=== PATIENT | female | born 2000 | race Caucasian/White ===

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

== ENCOUNTER 2021-12-18 16:16 | Emergency (ER) | payer OTHER ==
[2021-12-18 17:28] VITALS: TEMP 98.4
[2021-12-18] MEDS ORDERED: IBUPROFEN 200 MG TAB PO STA (20:30)
--- NOTE | 2021-12-18 21:04 | ED ---
ENT HPI - General Chief complaint: ENT Stated complaint: Throat pain,SOB Time Seen by Provider: 12/18/21 20:17 Source: patient Mode of arrival: ambulatory Limitations: no limitations - History of Present Illness Initial comments: Patient is a 21-year-old female presenting with chief complaint of sore throat. Sore throat began about one week ago and yesterday she noticed several tonsil stones. Patient states that throughout the week it has been increasingly difficult to swallow. She feels mild swelling of the throat. She is still able to eat and drink. She has gargled with salt water one time, has not noted any difference yet. Pain is diffuse and is not located on one side. She admits to congestion, sinus pressure, ear pressure, lymphadenopathy, dry cough. She denies voice changes, drooling, trismus, fever, chills, chest pain, shortness of breath, palpitations, hemoptysis, hematemesis, nausea, vomiting, abdominal pain, diarrhea, constipation. - Related Data Previous Rx's Medication Instructions Recorded methylPREDNISolone Dose Pack 4 mg PO DIRECTED #1 packet 12/18/21 [Medrol Dose Pack] Allergies Allergy/AdvReac Type Severity Reaction Status Date / Time No Known Allergies Allergy Verified 12/18/21 22:48 Review of Systems ROS Statement: Those systems with pertinent positive or pertinent negative responses have been documented in the HPI. ROS Other: All systems not noted in ROS Statement are negative. Past Medical History Past Medical History: Renal Disease, Skin Disorder Additional Past Medical History / Comment(s): Had several kidney stones - 2009, upper rt back wisdom removed approx-4 yrs ago and was put to sleep, eczema, fx left wristrt History of Any Multi-Drug Resistant Organisms: None Reported Past Surgical History: No Surgical Hx Reported Additional Past Surgical History / Comment(s): had wisdom tooth removed- was pulled out in office w sedation Past Anesthesia/Blood Transfusion Reactions: No Reported Reaction Past Psychological History: Anxiety, Depression Smoking Status: Current every day smoker Past Alcohol Use History: None Reported Past Drug Use History: None Reported - Past Family History Mother Family Medical History: Diabetes Mellitus Additional Family Medical History / Comment(s): hx of alcholism and drug use on mom's side General Exam Limitations: no limitations General appearance: alert, in no apparent distress Head exam: Present: atraumatic, normocephalic, normal inspection Eye exam: Present: normal appearance, PERRL, EOMI. Absent: scleral icterus, conjunctival injection, periorbital swelling ENT exam: Present: normal exam, mucous membranes moist Expanded TM/Canal exam: Effusion: Right TM, Left TM (Mild effusion B/L) Mouth exam: Present: normal external inspection, tongue normal. Absent: drooling, trismus, muffled voice Throat exam: tonsillar erythema, other (No midline shift). negative: tonsillomegaly, tonsillar exudate, R peritonsillar mass, L peritonsillar mass Neck exam: Present: tenderness, full ROM. Absent: meningismus, lymphadenopathy Respiratory exam: Present: normal lung sounds bilaterally. Absent: respiratory distress, wheezes, rales, rhonchi, stridor Cardiovascular Exam: Present: regular rate, normal rhythm, normal heart sounds. Absent: systolic murmur, diastolic murmur, rubs, gallop, clicks Neurological exam: Present: alert, oriented X3, CN II-XII intact Psychiatric exam: Present: normal affect, normal mood Skin exam: Present: warm, dry, intact, normal color. Absent: rash Course Vital Signs 12/18/21 12/18/21 12/18/21 17:26 22:15 23:26 Temperature 98.4 F Pulse Rate 66 68 84 Respiratory 18 18 20 Rate Blood Pressure 115/67 112/71 114/70 O2 Sat by Pulse 98 98 98 Oximetry Medical Decision Making - Medical Decision Making Patient is a 21-year-old female presenting with chief complaint sore throat. Pain is been gradually increasing for about one week and yesterday she noticed tonsil stones. She feels mild inflammation and finds it somewhat difficult to swallow her food and take deep breaths. She has been taking Tylenol at home which does not relieve the symptoms. She denies trismus, drooling, voice changes, fever, chills, pain localized to one side of the throat. On exam tonsils are mildly erythematous several tonsilloliths noted on exam. Uvula is midline and tonsils are equal size bilaterally. No visible masses. Patient tested negative for group A strep, Covid, influenza, RSV. Patient was given 200 mg ibuprofen here which helped alleviate some discomfort. While here patient also requested STI testing, urine STI screening for chlamydia, gonorrhea, Trichomonas was sent out. Patient was prescribed Medrol Dosepak, take as instructed. Patient may take Motrin and Tylenol at home as needed per package instructions for pain control. Gargling salt water and may help draw out tonsil stones and alleviate discomfort. Follow-up with primary care in 1-2 days. Report back to ER if experiencing worsening symptoms or new onset alarming symptoms, including but not limited to drooling, voice changes, jaw stiffness, difficulty swallowing, shortness of breath, chest pain, fever, chills. Answered all questions. Patient conveyed verbal understanding and agreed to the plan. - Lab Data Lab Results 12/18/21 12/18/21 Range/Units 21:03 21:03 Influenza Type A (PCR) Not Detected (Not Detectd) Influenza Type B (PCR) Not Detected (Not Detectd) RSV (PCR) Not Detected (Not Detectd) SARS-CoV-2 (PCR) Not Detected (Not Detectd) Group A Strep Rapid Negative (Negative) Disposition Clinical Impression: Tonsillolith, Sore throat Disposition: HOME SELF-CARE Condition: Good Instructions (If sedation given, give patient instructions): Pharyngitis (ED) Additional Instructions: Follow-up with ENT if needed. follow up with primary care within 1 week. Report to ER with worsening symptoms or new onset alarming symptoms, including but not limited to shortness of breath, difficulty swallowing, muffled voice, drooling, pain localized to one side of throat, fever, chills. Take medication as prescribed Prescriptions: methylPREDNISolone Dose Pack [Medrol Dose Pack] 4 mg PO DIRECTED #1 packet Is patient prescribed a controlled substance at d/c from ED?: No Referrals: None,Stated [Primary Care Provider] - 1-2 days Ramana Garcia MD [STAFF PHYSICIAN] - 12/25/21 Time of Disposition: 23:04
[2021-12-18 21:57] LABS: Influenza A Not Detected (Not Detectd); Influenza B Not Detected (Not Detectd)
[2021-12-18 23:28] VITALS: BP 114/70; PULSE 84; RESP 20
== END 2021-12-18 23:32 | disposition home or self-care (01) ==
LOC: EEVIPCON 16:16 → EC 16:16
DX: J35.8 Other chronic diseases of tonsils and adenoids (principal); F41.9 Anxiety disorder, unspecified; F32.A Depression, unspecified; F17.200 Nicotine dependence, unspecified, uncomplicated; Z20.822 Contact with and (suspected) exposure to COVID-19; Z87.442 Personal history of urinary calculi
CPT/HCPCS: 87081; 87430; 87491; 87591; 87636; 99283

== ENCOUNTER → 2024-02-20 | Outpatient (CLI) | payer BC ==
--- NOTE | 2024-02-20 17:10 | US ---
EXAMINATION TYPE: US pelvic complete DATE OF EXAM: 02/20/2024 COMPARISON: NONE CLINICAL INDICATION: Female, 23 years old with history of R35.0 FREQUENCY OF MICTURITION; freq urinat ion TECHNIQUE: Transabdominal (TA EXAM MEASUREMENTS: Uterus: 7.6 x 4.4 x 6.5 cm Endometrial Stripe: 1.3 cm Right Ovary: 3.3 x 1.6 x 1.6 cm Left Ovary: 3.5 x 2.5 x 2.0 cm Limited examination due to only transabdominal approach. 1. Uterus: Anteverted wnl 2. Endometrium: wnl 3. Right Ovary: wnl 4. Left Ovary: wnl 5. Bilateral Adnexa: wnl 6. Posterior cul-de-sac: wnl IMPRESSION: Unremarkable pelvic ultrasound.
== END | disposition home or self-care (01) ==
LOC: RADUSWWP 14:34
PROVIDERS: ATTEND Family Medicine
DX: R35.0 Frequency of micturition (principal)
CPT/HCPCS: 76856